=== PATIENT | male | born 1960 | race Caucasian/White ===

== ENCOUNTER 2018-06-30 19:43 | Emergency (ER) | payer OTHER ==
[~2018-06-30] VITALS: Ht 177.8 cm; Wt 102.1 kg
[2018-06-30] MEDS ORDERED: CEPH500 PO (20:52)
[2018-06-30] MEDS ORDERED: IBUP800 PO (20:52)
== END 2018-06-30 23:28 | disposition home or self-care (01) ==
LOC: ER 19:43
DX: S51.012A Laceration without foreign body of left elbow, initial encounter (principal); S40.212A Abrasion of left shoulder, initial encounter; V59.9XXA Occupant (driver) (passenger) of pick-up truck or van injured in unspecified traffic accident, initial encounter; Z79.899 Other long term (current) drug therapy
CPT/HCPCS: 12034; 71045; 73030; 73080; 90471; 90714; 96365-59; 96375-59; 99284-25; A9270-GY; J0690; J3010